=== PATIENT | male | born 1990 | race Caucasian/White ===

== ENCOUNTER → 2024-04-17 13:34 | Outpatient (REF) | payer OTHER, SELFPAY | LOC: MRI 3T 13:34 | PROVIDERS: ATTENDING PHYSICIAN Family Medicine Sports Medicine; FAMILY PHYSICIAN Nurse Practitioner Family | DX: S43.431A Superior glenoid labrum lesion of right shoulder, initial encounter (principal) | CPT/HCPCS: 23350; 73040; 73222 ==